=== PATIENT | male | born 1940 | race Caucasian/White ===

== ENCOUNTER 2020-08-09 07:54 | Emergency (ER) | payer MEDICARE, OTHER ==
[~2020-08-09] VITALS: Ht 190.5 cm; Wt 100.6 kg
[~2020-08-09 07:54] MED LIST: ASPI325T80 PO; TAMS0.4C2 PO
[2020-08-09] MEDS ORDERED: ACETAMINOPHEN 500 MG TABLET ONE (08:29)
[2020-08-09] MEDS ORDERED: KETOROLAC 30 MG/1 ML ONE (08:29)
[2020-08-09] MEDS ORDERED: ACETAMINOPHEN 500 MG TABLET PO ONE (08:30)
[2020-08-09] MEDS ORDERED: KETOROLAC 30 MG/1 ML IM ONE (08:30)
--- NOTE | 2020-08-09 08:56 | NUR ---
REPORT GIVEN TO RICK LR.
[2020-08-09 09:00] VITALS: BP 154/78
--- NOTE | 2020-08-09 09:00 | NUR ---
ASSUMING CARE OF PATIENT AFTER BEDSIDE REPORT. PT MEDICATED PER EMAR. PT RESTING IN BED. VSS. NADN. AT BEDSIDE.
== END 2020-08-09 10:02 | disposition home or self-care (01) ==
LOC: ED 08:30
DX: M19.012 Primary osteoarthritis, left shoulder (principal); M25.512 Pain in left shoulder; I10 Essential (primary) hypertension
CPT/HCPCS: 73030; 96372; 99283; J1885